=== PATIENT | male | born 1945 | race Caucasian/White ===

== ENCOUNTER 2021-10-17 14:11 | Observation (INO) ==
[2021-10-17 15:06] LABS: Basophils % 0.4 %; Eosinophils # 0.2 K/mcL (0.0-0.6); Eosinophils % 1.9 %; Hematocrit 41.8 % (37.5-50.1); Hemoglobin 14.1 g/dL (12.9-16.9); Immature Granulocytes % 0.2 % (0-4); Lymphocytes # 2.9 K/mcL (0.6-4.6); Lymphocytes % 35.7 %; Mean Corpuscular HGB Conc 33.7 g/dL (31.6-35.5); Mean Platelet Volume 10.5 fL (9.4-12.4); Monocytes # 0.6 K/mcL (0.0-1.3); Monocytes % 7.6 %; Neutrophils # 4.4 K/mcL (1.6-8.9); Platelet Count 142 K/mcL (140-400); Red Cell Distribution Width 13.4 % (11.5-14.5); Segmented Neutrophils % 54.2 %; White Blood Count 8.1 K/mcL (4.3-11.1)
[2021-10-17 15:14] LABS: INR 1.1; Prothrombin Time 12.5 Seconds (9.4-12.1)
[2021-10-17 15:17] LABS: Activated Partial Thrombo Time 36.4 Seconds (26.0-36.0)
[2021-10-17 16:19] LABS: BUN/Creatinine Ratio 14 (6-26); Blood Urea Nitrogen 11 mg/dL (8-23); Calcium 9.1 mg/dL (8.6-10.3); Carbon Dioxide 27 mEq/L (23-29); Chloride 106 mEq/L (98-107); Glucose 93 mg/dL (70-105); Osmolality,Calculated 291 (280-300); Potassium 3.9 mEq/L (3.5-5.1); Sodium 141 mEq/L (136-145); Troponin I < 0.03 ng/mL (< 0.04)
[2021-10-17] MEDS ORDERED: Acetaminophen 325 MG TABLET PO PRN (18:19)
[2021-10-17] MEDS ORDERED: Naloxone 0.4 MG/ML INJ IVP PRN (18:19)
[2021-10-17] MEDS ORDERED: Ipratropium/Albuterol Neb 3 ML IH PRN (18:24)
[2021-10-18] MEDS ORDERED: *HR* Heparin 5,000 UNIT/ML VIAL SQ SCH (06:00)
[2021-10-18] MEDS ORDERED: Regadenoson 0.4 MG/5 ML SYRINGE IVP ONE (06:07)
[2021-10-18 07:45] LABS: Chol/HDL Ratio 2.6 (0-4.9); Cholesterol 131 mg/dL (< 200); HDL Cholesterol 50 mg/dL (40-59); LDL Cholesterol,Calculated 65 mg/dL (< 100); Triglycerides 81 mg/dL (< 150); Troponin I < 0.03 ng/mL (< 0.04)
[2021-10-18] MEDS ORDERED: lisinopriL 10 MG TABLET PO SCH ×2 (09:00→18:00)
[2021-10-18] MEDS ORDERED: Metoprolol XL (24 HR) Succ 25 MG TAB.ER.24H PO SCH (09:00)
[2021-10-18 09:14] LABS: Estimated Average Glucose 111 mg/dl; Hemoglobin A1C 5.5 %
[2021-10-18] MEDS ORDERED: Budesonide/Formoterol 160/4.5 1 PUFF INH IH SCH (10:00)
[2021-10-18] MEDS ORDERED: Tiotropium 10 INH DOSE IH SCH (10:00)
[2021-10-18 10:51] VITALS: BP 150/88; PULSE 64; TEMP 97.3; O2SAT 95
== END 2021-10-18 15:09 | disposition home or self-care (01) ==
LOC: EMEROOARM 14:11 → 3BNU 14:11 → SUATTDRO 20:25 → 3BNU 22:00
PROVIDERS: ADMIT Internal Medicine; ATTEND Internal Medicine